=== PATIENT | male | born 2000 | race African-American/Black ===

== ENCOUNTER 2021-01-12 08:21 | Emergency (ER) | payer SELFPAY ==
[~2021-01-12] VITALS: Ht 172.7 cm; Wt 63.6 kg
[2021-01-12 08:26] VITALS: Ht 172.7 cm; Wt 63.6 kg
[2021-01-12 09:10] LABS: CALC OSMOLALITY 272 mosm/kg (275-300); CALCIUM 9.4 mg/dL (8.5-10.1); CHLORIDE - SERUM 99 mmol/L (98-107); CREATININE - SERUM 0.9 mg/dL (0.6-1.3); GLUCOSE 106 mg/dL (74-106); POTASSIUM - SERUM 3.6 mmol/L (3.5-5.1); SODIUM 137 mmol/L (136-145); UREA NITROGEN 9 mg/dL (7-18); eGFR NON AFRICAN AMERICAN > 90 mL/min (90-120)
[2021-01-12 09:13] LABS: BASOPHILS 0.5 % (0-2); EOSINOPHILS 0.3 % (0-7); HEMATOCRIT 38.9 % (42.0-54.0); HEMOGLOBIN 12.7 g/dL (13.5-17.5); LYMPHOCYTES 3.6 % (15-50); MCH 28.4 pg (26.0-34.0); MCHC 32.6 g/dL (31.0-37.0); MEAN PLATELET VOLUME 8.5 fL (7.4-10.4); MONOCYTES 10.9 % (2-11); NEUTROPHILS 84.7 % (40-80); PLATELET COUNT 238 10x3/uL (130-400); RBC 4.47 10x6/uL (4.20-6.10); RDW 13.9 % (11.5-14.5); WBC 10.9 10x3/uL (4.8-10.8)
[2021-01-12 09:16] LABS: ALBUMIN 4.4 g/dL (3.4-5.0); ALKALINE PHOSPHATASE 79 U/L (30-120); ALT (SGPT) 16 U/L (10-68); BILIRUBIN - TOTAL 0.43 mg/dL (0.2-1.3); C-REACTIVE PROTEIN 0.4 mg/dL (0.0-0.9); CREATINE KINASE 137 UL (21-232); PROTEIN - SERUM 8.4 g/dL (6.4-8.2)
[2021-01-12 09:56] VITALS: BP 122/70
[2021-01-12 10:46] LABS: ANISOCYTOSIS OCC; LYMPHOCYTES 5 % (15-50); MONOCYTES 12 % (2-11); NEUTROPHILS 81 % (40-80); PLATELET ESTIMATE NORMAL; ROULEAUX OCC
== END 2021-01-12 10:20 | disposition home or self-care (01) ==
LOC: D.ER 08:21
PROVIDERS: Family Medicine
DX: R51.9 Headache, unspecified (principal); M79.605 Pain in left leg; M79.604 Pain in right leg